=== PATIENT | male | born 1955 ===

== ENCOUNTER 2016-05-26 09:55 | Inpatient (IN) | payer BC ==
[2016-05-21 12:32] VITALS: BMI 29.5
[2016-05-26] MEDS ORDERED: Midazolam 2 MG/2 ML VIAL ONE (15:41)
[2016-05-26] MEDS ORDERED: Bupivacaine HCl 0.5% PF (10 ml) Inj ONE (15:41)
[2016-05-26] MEDS ORDERED: ceFAZolin IV 1 gm in Dextrose 50 ML IVPB ONE (15:41)
[2016-05-26] MEDS ORDERED: Propofol 10 mg/ml Inj (20 ML) ONE (15:41)
[2016-05-26] MEDS ORDERED: Lidocaine 1% Inj (20ml) ONE (15:41)
[2016-05-26] MEDS ORDERED: Succinylcholine Chloride 20 mg/ml Syr (5 ml) IV ONE ×2 (15:43→16:40)
[2016-05-26] MEDS ORDERED: Lactated Ringer's 1,000 ML IV ONE ×2 (15:45→16:49)
[2016-05-26] MEDS ORDERED: HYDROmorphone 0.5 mg/0.5 ml ISec IVP PRN (17:08)
[2016-05-26] MEDS ORDERED: Neostigmine Methylsulfate 3mg/3ml Syringe IV ONE (18:10)
[2016-05-26] MEDS: Dextrose 5%/0.45% NS 1,000 ML IV SCH (19:39)
[2016-05-26] MEDS: Lactated Ringer's 1,000 ML IV SCH (19:47)
--- NOTE | 2016-05-26 20:33 | OP ---
PROCEDURE DATE: 05/26/2016 PREOPERATIVE DIAGNOSES: Ventral and left inguinal hernia. POSTOPERATIVE DIAGNOSES: Ventral and left direct inguinal hernia. PROCEDURE PERFORMED: 1. Repair of a midline ventral hernia. 2. Repair of left inguinal hernia with mesh. SURGEON: Arias Montoya MD ANESTHESIA: General. BLOOD LOSS: 40 mL. POSTOPERATIVE CONDITION: Stable. INDICATIONS FOR SURGERY: This is a 60-year-old male who presents with 2 painful hernias, one of the left groin and one of the abdominal wall. GROSS FINDINGS: The patient had a midline ventral hernia 2-3 fingerbreadths above the umbilicus, whi ch was repaired primarily. There was a direct left inguinal hernia which was repaired with a ProLoop mesh. There was a large cord lipoma associated with the hernia, which was the inguinal hernia, whic h was removed. PROCEDURE: The patient was taken to the operating room, placed in supine position, general anesthesi a administered and the abdomen and left groin were prepped and draped. Attention was first turned to the ventral hernia. An upper midline incision was made over the hernia site. The hernia sac was en countered, excised down to the base of the hernia where a primary repair was accomplished using inter rupted #1 Novafil suture. The overlying skin was closed utilizing an adjacent tissue transfer closur e due to the space. This was performed with Monocryl and clips. Next, attention was turned to the left groin. A standard left inguinal incision was made. The external oblique aponeurosis was op ened and the spermatic cord was looped with a Jeannette drain. A large cord lipoma within the cord was excised and removed and sent for specimen. The direct hernia sac was dissected free down to its bas e. The pre-peritoneum was transected and it was then reduced and an extra-large ProLoop plug was mekhi vero. Bleeding from the epigastric blood vessel was repaired. The plug was sutured in place with int errupted 2-0 Prolene. The wounds were irrigated with saline and closed in layers with Vicryl and ski n clips. The patient tolerated the procedure well, returned to recovery room in stable condition. Arias Montoya MD cc: [id number] TT: 05/26/2016 20:32:56 sn
[2016-05-27] MEDS: Lactated Ringer's 1,000 ML IV SCH (06:35)
[2016-05-27] MEDS: Oxycodone/Acetaminophen 5/325 mg Tab PO PRN ×3 (07:38→17:48)
[2016-05-27 08:19] LABS: BASO # 0.1 K/uL (0.0-0.2); BASO % 0.6 % (0.0-2.0); EOS % 0.3 % (0.0-4.0); HEMATOCRIT 42.9 % (35.0-51.0); LYMPH # 2.2 K/uL (1.0-4.3); LYMPH % 18.1 % (20.0-40.0); MEAN CELL VOLUME 86.1 fL (80.0-94.0); MEAN CORPUSCULAR HEMOGLOBIN 29.2 pg (27.0-31.0); MEAN CORPUSCULAR HGB CONC 33.9 g/dL (33.0-37.0); MEAN PLATELET VOLUME 8.8 fL (7.2-11.7); MONO # 0.8 K/uL (0.0-0.8); MONO % 6.5 % (0.0-10.0); RED CELL DISTRIBUTION WIDTH 13.2 % (11.5-14.5); WHITE BLOOD COUNT 12.4 K/uL (4.8-10.8)
[2016-05-27 08:51] LABS: CHLORIDE 97 mmol/L (98-107); POTASSIUM 4.1 mmol/L (3.6-5.2); SODIUM 137 mmol/L (132-148)
[2016-05-27 08:54] LABS: BLOOD UREA NITROGEN 12 mg/dL (9-20); CALCIUM 8.2 mg/dl (8.6-10.4); CARBON DIOXIDE 26 mmol/L (22-30); GFR AFRICAN-AMERICAN > 60; GLUCOSE,RANDOM 116 mg/dL (75-110)
[2016-05-27] MEDS: Enoxaparin 40 mg Syringe SC SCH (10:00)
[2016-05-27 15:45] VITALS: O2SAT 95
[2016-05-27] MEDS: Dextrose 5%/0.45% NS 1,000 ML IV SCH (23:12)
[2016-05-28 08:44] VITALS: BP 154/87; PULSE 76; RESP 17; TEMP 98.5
[2016-05-28] MEDS: Enoxaparin 40 mg Syringe SC SCH (10:00)
== END 2016-05-28 13:04 | disposition home or self-care (01) | DRG 352 ==
LOC: C.SDS 09:55 → C.9S 17:13 → C.6T 18:59
PROVIDERS: ADMIT Surgery; ATTEND Surgery
PROC: 0WQF0ZZ Repair Abdominal Wall, Open Approach (ICD-10-PCS; 2016-05-26)
PROC: 0YU60JZ Supplement Left Inguinal Region with Synthetic Substitute, Open Approach (ICD-10-PCS; principal; 2016-05-26 12:00)
DX: K43.9 Ventral hernia without obstruction or gangrene (principal); D17.6 Benign lipomatous neoplasm of spermatic cord; K40.90 Unilateral inguinal hernia, without obstruction or gangrene, not specified as recurrent